=== PATIENT | male | born 1975 | race Two or more races ===

== ENCOUNTER 2020-11-13 00:31 | Inpatient (IN) | payer MEDICAID ==
[~2020-11-13] VITALS: Ht 175.3 cm; Wt 84.0 kg
[2020-11-13] MEDS ORDERED: cloNIDine HCL 0.1 MG TAB PO ONE ×2 (01:30→03:45)
[2020-11-13] MEDS ORDERED: KETOROLAC TROMETH 60MG/2ML VIAL IM ONE (03:45)
[2020-11-13] MEDS ORDERED: cefTRIAXone SOD 1,000 MG VL IM ONE (06:30)
[2020-11-13 07:45] LABS: Basophils # (auto) 0.1 10 ^3/uL (0-0.2); Basophils % (auto) 0.5 % (0.0-2.0); Eosinophils # (auto) 0.2 10 ^3/uL (0-0.8); Eosinophils % (auto) 1.6 % (0.0-7.0); Hematocrit 43.6 % (41.0-53.0); Hemoglobin 14.9 g/dL (13.5-17.5); Lymphocytes # (auto) 2.3 10 ^3/uL (0.4-5.4); Lymphocytes % (auto) 16.9 % (10.0-50.0); Mean Corpuscular Hemoglobin 30.6 pg (28.0-32.0); Mean Corpuscular Hgb Conc. 34.2 g/dL (32.0-36.0); Mean Corpuscular Volume 89.6 fL (80.0-100.0); Monocytes % (auto) 7.6 % (0.0-12.0); Neutrophils # (auto) 9.9 10 ^3/uL (1.6-8.6); Neutrophils % (auto) 73.4 % (37.0-80.0); Red Blood Cells 4.86 10^6/uL (4.5-5.90); Red Cell Distribution Width 13.4 % (11.8-14.3); White Blood Cell 13.5 10^3/uL (4.4-10.8)
[2020-11-13 08:09] LABS: Calcium 8.5 mg/dL (8.5-10.1); Potassium 3.3 mmol/L (3.5-5.1)
[2020-11-13 08:11] LABS: BUN/Creatinine Ratio 25.4; Bilirubin, Total 0.4 mg/dL (0.2-1.0); Total Protein 7.1 g/dL (6.4-8.2)
[2020-11-13] MEDS ORDERED: VANCOMYCIN 1GM/250ML 250 ML IV ONE (08:45)
[2020-11-13] MEDS ORDERED: SOD CHL 0.9%/ KCL 40MEQ 1,000 ML IV ONE (09:00)
[2020-11-13] MEDS ORDERED: MORPHINE SULFATE INJECTION 2 MG/ML SYRG IV PRN (09:00)
[2020-11-13] MEDS ORDERED: ONDANSETRON HCL 4 MG/2 ML VIAL IV PRN (09:00)
[2020-11-13] MEDS ORDERED: NITROGLYCERIN 0.4 MG SL TAB SL PRN (09:00)
[2020-11-13] MEDS ORDERED: ACETAMINOPHEN 500 MG TAB PO PRN (09:00)
[2020-11-13] MEDS ORDERED: hydrALAZINE HCL 20 MG/ML VL IV PRN (09:00)
[2020-11-13] MEDS ORDERED: LORazepam 0.5 MG TAB PO PRN (09:00)
[2020-11-13] MEDS: PANTOPRAZOLE 40 MG TAB PO SCH (10:22)
[2020-11-13] MEDS: amLODIPine BESYLATE 5 MG TAB PO SCH (10:22)
[2020-11-13] MEDS: MORPHINE SULFATE INJECTION 2 MG/ML SYRG IV PRN ×3 (12:51→21:28)
[2020-11-13 13:00] VITALS: BP_SYST 148; BP_SYST 185; BP_DIAS 113; BP_DIAS 87
[2020-11-13] MEDS: CLINDAMYCIN 300MG IV 50 ML IV SCH ×2 (14:34→21:24)
[2020-11-13] MEDS: HYDROcodone-ACET 5/325MG TAB PO PRN ×2 (15:02→23:19)
[2020-11-13] MEDS: NICOTINE 21MG/24 HR TOPICAL PATCH TD SCH (18:19)
[2020-11-13 20:00] VITALS: BP 156/96
[2020-11-13 22:00] VITALS: BP 156/96
[2020-11-14 05:00] VITALS: BP 149/97
[2020-11-14] MEDS: CLINDAMYCIN 300MG IV 50 ML IV SCH ×3 (05:22→22:05)
[2020-11-14] MEDS: MORPHINE SULFATE INJECTION 2 MG/ML SYRG IV PRN ×3 (05:23→18:53)
[2020-11-14] MEDS: HYDROcodone-ACET 5/325MG TAB PO PRN ×3 (08:06→22:06)
[2020-11-14 08:30] VITALS: BP 184/114
[2020-11-14] MEDS: NICOTINE 21MG/24 HR TOPICAL PATCH TD SCH (09:17)
[2020-11-14] MEDS: cefTRIAXone 1GM/50ML D5W 50 ML IV SCH (09:17)
[2020-11-14] MEDS: PANTOPRAZOLE 40 MG TAB PO SCH (09:18)
[2020-11-14 09:22] VITALS: BP 157/102
[2020-11-14] MEDS: amLODIPine BESYLATE 5 MG TAB PO SCH (09:24)
[2020-11-14 12:30] VITALS: BP 159/105
[2020-11-14] MEDS: LABETALOL HCL 200 MG TAB PO SCH ×2 (14:15→22:06)
[2020-11-14 17:00] VITALS: BP_SYST 153; BP_SYST 170; BP_DIAS 109; BP_DIAS 97
[2020-11-14] MEDS: DOCUSATE SOD 100 MG CAP PO PRN (22:06)
[2020-11-15] MEDS: MORPHINE SULFATE INJECTION 2 MG/ML SYRG IV PRN ×4 (03:26→20:31)
[2020-11-15] MEDS: HYDROcodone-ACET 5/325MG TAB PO PRN ×3 (04:50→17:36)
[2020-11-15 05:00] VITALS: BP 132/87
[2020-11-15] MEDS: CLINDAMYCIN 300MG IV 50 ML IV SCH ×3 (06:10→21:30)
[2020-11-15 06:13] LABS: Cholesterol 189 mg/dL (< 200); HDL Cholesterol 28 mg/dL (40-59); LDL Cholesterol 132 mg/dL (< 100); Triglycerides 161 mg/dL (< 150)
[2020-11-15 08:52] VITALS: BP 127/81
[2020-11-15] MEDS: cefTRIAXone 1GM/50ML D5W 50 ML IV SCH (09:23)
[2020-11-15] MEDS: amLODIPine BESYLATE 5 MG TAB PO SCH (09:24)
[2020-11-15] MEDS: PANTOPRAZOLE 40 MG TAB PO SCH (09:24)
[2020-11-15] MEDS: LABETALOL HCL 200 MG TAB PO SCH ×2 (09:25→21:30)
[2020-11-15] MEDS: NICOTINE 21MG/24 HR TOPICAL PATCH TD SCH (09:26)
[2020-11-15 13:00] VITALS: BP 144/98
[2020-11-15 16:46] VITALS: BP 156/95
[2020-11-15 22:00] VITALS: BP 154/109
[2020-11-16] MEDS: HYDROcodone-ACET 5/325MG TAB PO PRN ×4 (00:50→21:11)
[2020-11-16] MEDS: MORPHINE SULFATE INJECTION 2 MG/ML SYRG IV PRN ×4 (03:18→23:31)
[2020-11-16 05:00] VITALS: BP 142/93
[2020-11-16] MEDS: CLINDAMYCIN 300MG IV 50 ML IV SCH ×3 (05:18→21:11)
[2020-11-16 09:00] VITALS: BP 142/97
[2020-11-16] MEDS: cefTRIAXone 1GM/50ML D5W 50 ML IV SCH (09:40)
[2020-11-16] MEDS: NICOTINE 21MG/24 HR TOPICAL PATCH TD SCH (09:41)
[2020-11-16] MEDS: LABETALOL HCL 200 MG TAB PO SCH ×2 (09:43→22:00)
[2020-11-16] MEDS: PANTOPRAZOLE 40 MG TAB PO SCH (09:43)
[2020-11-16] MEDS: amLODIPine BESYLATE 5 MG TAB PO SCH (09:43)
[2020-11-16 13:00] VITALS: BP 145/99
[2020-11-16] MEDS: POVIDONE IODINE 10 % TOPICAL OINT 30GM TOP SCH (15:00)
[2020-11-16 17:00] VITALS: BP 135/89
[2020-11-16] MEDS: ATORVASTATIN 20 MG TAB PO SCH (21:11)
[2020-11-16 22:00] VITALS: BP 154/94
[2020-11-17] MEDS: HYDROcodone-ACET 5/325MG TAB PO PRN ×2 (03:08→13:02)
[2020-11-17 05:00] VITALS: BP 132/84
[2020-11-17] MEDS: CLINDAMYCIN 300MG IV 50 ML IV SCH ×3 (05:04→21:56)
[2020-11-17] MEDS: MORPHINE SULFATE INJECTION 2 MG/ML SYRG IV PRN ×3 (05:04→19:47)
[2020-11-17 05:50] LABS: INR 1.17 (0.9-1.15); Partial Thromboplastin Time 31.9 sec (23.6-33.0)
[2020-11-17 06:41] LABS: Urine Bacteria FEW /hpf (None Seen); Urine Blood 2+ /uL (Negative); Urine Mucus FEW (None Seen); Urine Specific Gravity 1.029 (1.001-1.035); Urine Sperm PRESENT /hpf (None Seen); Urine WBC 4 /hpf (0 - 3)
[2020-11-17] MEDS ORDERED: BUPIVACAINE 0.25% INJ 50ML VIAL ONE (07:23)
[2020-11-17] MEDS ORDERED: LIDOCAINE 1% HCL (LOCAL ANESTH.) INJ 20ML MDV ONE (07:23)
[2020-11-17] MEDS ORDERED: MIDAZOLAM HCL 2MG/2ML 2ml VIAL (1mg/ml) ONE (07:32)
[2020-11-17] MEDS ORDERED: fentaNYL CITRATE 100 MCG/2 ML VL ONE ×2 (07:32→07:51)
[2020-11-17] MEDS ORDERED: ONDANSETRON HCL 4 MG/2 ML VIAL ONE (07:52)
[2020-11-17] MEDS ORDERED: LIDOCAINE 2% (LOCAL ANESTH.) PF 5ml SDV ONE (07:52)
[2020-11-17] MEDS ORDERED: PROPOFOL 10 MG/ML 20 ML IV ONE (07:53)
[2020-11-17] MEDS ORDERED: HYDROmorphone HCL 2 MG/ML VL ONE (08:12)
[2020-11-17] MEDS: HYDROmorphone HCL 2 MG/ML VL IV PRN ×4 (08:13→08:43)
[2020-11-17] MEDS ORDERED: ONDANSETRON HCL 4 MG/2 ML VIAL IV PRN (08:15)
[2020-11-17] MEDS ORDERED: HYDROmorphone HCL 2 MG/ML VL IV PRN (08:15)
[2020-11-17] MEDS: POVIDONE IODINE 10 % TOPICAL OINT 30GM TOP SCH (09:09)
[2020-11-17] MEDS: cefTRIAXone 1GM/50ML D5W 50 ML IV SCH (10:12)
[2020-11-17] MEDS: PANTOPRAZOLE 40 MG TAB PO SCH (10:14)
[2020-11-17] MEDS: LABETALOL HCL 200 MG TAB PO SCH ×2 (10:14→22:17)
[2020-11-17] MEDS: amLODIPine BESYLATE 5 MG TAB PO SCH (10:14)
[2020-11-17] MEDS: NICOTINE 21MG/24 HR TOPICAL PATCH TD SCH (10:15)
[2020-11-17] MEDS: ATORVASTATIN 20 MG TAB PO SCH (21:56)
[2020-11-17 22:00] VITALS: BP 143/86
[2020-11-18 05:00] VITALS: BP 129/80
[2020-11-18] MEDS: CLINDAMYCIN 300MG IV 50 ML IV SCH ×2 (06:45→14:22)
[2020-11-18] MEDS: MORPHINE SULFATE INJECTION 2 MG/ML SYRG IV PRN ×3 (06:46→15:10)
[2020-11-18] MEDS: cefTRIAXone 1GM/50ML D5W 50 ML IV SCH (08:41)
[2020-11-18 09:00] VITALS: BP 130/82
[2020-11-18] MEDS: POVIDONE IODINE 10 % TOPICAL OINT 30GM TOP SCH (10:00)
[2020-11-18 10:32] LABS: Basophils # (auto) 0.1 10 ^3/uL (0-0.2); Basophils % (auto) 0.7 % (0.0-2.0); Eosinophils # (auto) 0.1 10 ^3/uL (0-0.8); Eosinophils % (auto) 1.4 % (0.0-7.0); Hematocrit 44.1 % (41.0-53.0); Hemoglobin 15.3 g/dL (13.5-17.5); Lymphocytes # (auto) 1.5 10 ^3/uL (0.4-5.4); Lymphocytes % (auto) 15.7 % (10.0-50.0); Mean Corpuscular Hgb Conc. 34.6 g/dL (32.0-36.0); Mean Corpuscular Volume 89.6 fL (80.0-100.0); Monocytes % (auto) 10.2 % (0.0-12.0); Neutrophils # (auto) 6.8 10 ^3/uL (1.6-8.6); Red Blood Cells 4.92 10^6/uL (4.5-5.90); Red Cell Distribution Width 13.3 % (11.8-14.3); White Blood Cell 9.4 10^3/uL (4.4-10.8)
[2020-11-18 10:50] LABS: Albumin 2.9 g/dL (3.4-5.0); BUN/Creatinine Ratio 21.8; Calcium 8.4 mg/dL (8.5-10.1); Potassium 3.8 mmol/L (3.5-5.1)
[2020-11-18 10:53] LABS: Bilirubin, Total 0.3 mg/dL (0.2-1.0); Total Protein 7.5 g/dL (6.4-8.2)
[2020-11-18] MEDS: LABETALOL HCL 200 MG TAB PO SCH ×2 (10:55→23:08)
[2020-11-18] MEDS: amLODIPine BESYLATE 5 MG TAB PO SCH (10:55)
[2020-11-18] MEDS: PANTOPRAZOLE 40 MG TAB PO SCH (10:55)
[2020-11-18] MEDS: NICOTINE 21MG/24 HR TOPICAL PATCH TD SCH (10:56)
[2020-11-18 13:00] VITALS: BP 121/73
[2020-11-18 16:45] VITALS: BP 129/88
[2020-11-18] MEDS: DOCUSATE SOD 100 MG CAP PO PRN ×2 (19:03→19:25)
[2020-11-18] MEDS: HYDROcodone-ACET 5/325MG TAB PO PRN (19:25)
[2020-11-18 22:00] VITALS: BP 133/83
[2020-11-18] MEDS: ATORVASTATIN 20 MG TAB PO SCH (22:43)
[2020-11-19] MEDS: CLINDAMYCIN 300MG IV 50 ML IV SCH ×4 (01:05→22:24)
[2020-11-19] MEDS: HYDROcodone-ACET 5/325MG TAB PO PRN ×3 (02:14→22:33)
[2020-11-19 05:00] VITALS: BP 114/81
[2020-11-19 08:26] VITALS: BP 108/69
[2020-11-19] MEDS: cefTRIAXone 1GM/50ML D5W 50 ML IV SCH (09:32)
[2020-11-19] MEDS: NICOTINE 21MG/24 HR TOPICAL PATCH TD SCH (09:32)
[2020-11-19] MEDS: LABETALOL HCL 200 MG TAB PO SCH ×2 (09:33→22:24)
[2020-11-19] MEDS: amLODIPine BESYLATE 5 MG TAB PO SCH (09:33)
[2020-11-19] MEDS: POVIDONE IODINE 10 % TOPICAL OINT 30GM TOP SCH (09:34)
[2020-11-19] MEDS: PANTOPRAZOLE 40 MG TAB PO SCH (09:34)
[2020-11-19 13:00] VITALS: BP 109/72
[2020-11-19] MEDS: MORPHINE SULFATE INJECTION 2 MG/ML SYRG IV PRN ×4 (14:25→20:28)
[2020-11-19 16:48] VITALS: BP 145/85
[2020-11-19 22:00] VITALS: BP 133/85
[2020-11-19] MEDS: ATORVASTATIN 20 MG TAB PO SCH (22:24)
[2020-11-20 05:00] VITALS: BP 116/76
[2020-11-20] MEDS: CLINDAMYCIN 300MG IV 50 ML IV SCH ×3 (05:47→22:40)
[2020-11-20] MEDS: cefTRIAXone 1GM/50ML D5W 50 ML IV SCH (08:54)
[2020-11-20 09:00] VITALS: BP 123/74
[2020-11-20] MEDS: PANTOPRAZOLE 40 MG TAB PO SCH (10:07)
[2020-11-20] MEDS: LABETALOL HCL 200 MG TAB PO SCH ×2 (10:07→22:40)
[2020-11-20] MEDS: amLODIPine BESYLATE 5 MG TAB PO SCH (10:08)
[2020-11-20] MEDS: NICOTINE 21MG/24 HR TOPICAL PATCH TD SCH (10:09)
[2020-11-20 13:00] VITALS: BP 110/75
[2020-11-20 17:00] VITALS: BP 129/76
[2020-11-20] MEDS: POVIDONE IODINE 10 % TOPICAL OINT 30GM TOP SCH (19:24)
[2020-11-20 22:00] VITALS: BP 142/75
[2020-11-20] MEDS: ATORVASTATIN 20 MG TAB PO SCH (22:40)
[2020-11-20] MEDS: MORPHINE SULFATE INJECTION 2 MG/ML SYRG IV PRN (22:41)
[2020-11-21 05:00] VITALS: BP 122/70
[2020-11-21] MEDS: MORPHINE SULFATE INJECTION 2 MG/ML SYRG IV PRN (05:09)
[2020-11-21] MEDS: CLINDAMYCIN 300MG IV 50 ML IV SCH ×3 (05:28→21:33)
[2020-11-21 08:25] VITALS: BP 125/76
[2020-11-21] MEDS: cefTRIAXone 1GM/50ML D5W 50 ML IV SCH (09:38)
[2020-11-21] MEDS: LABETALOL HCL 200 MG TAB PO SCH ×2 (09:40→21:33)
[2020-11-21] MEDS: amLODIPine BESYLATE 5 MG TAB PO SCH (09:40)
[2020-11-21] MEDS: NICOTINE 21MG/24 HR TOPICAL PATCH TD SCH (09:41)
[2020-11-21] MEDS: PANTOPRAZOLE 40 MG TAB PO SCH (09:41)
[2020-11-21 12:46] VITALS: BP 117/77
[2020-11-21 16:41] VITALS: BP 120/75
[2020-11-21] MEDS: ATORVASTATIN 20 MG TAB PO SCH (21:33)
[2020-11-21] MEDS: HYDROcodone-ACET 5/325MG TAB PO PRN (21:34)
[2020-11-21 22:00] VITALS: BP 132/83
[2020-11-22 04:53] VITALS: BP 130/81
[2020-11-22] MEDS: CLINDAMYCIN 300MG IV 50 ML IV SCH ×2 (05:39→17:14)
[2020-11-22] MEDS ORDERED: ceFAZolin 1GM/50ML 50 ML IV ONE (07:37)
[2020-11-22 09:00] VITALS: BP 124/80
[2020-11-22] MEDS: cefTRIAXone 1GM/50ML D5W 50 ML IV SCH (09:07)
[2020-11-22] MEDS: POVIDONE IODINE 10 % TOPICAL OINT 30GM TOP SCH (10:00)
[2020-11-22] MEDS: LABETALOL HCL 200 MG TAB PO SCH (10:53)
[2020-11-22] MEDS: amLODIPine BESYLATE 5 MG TAB PO SCH (10:53)
[2020-11-22] MEDS: PANTOPRAZOLE 40 MG TAB PO SCH (10:54)
[2020-11-22] MEDS: NICOTINE 21MG/24 HR TOPICAL PATCH TD SCH (10:58)
[2020-11-22 13:00] VITALS: BP 124/78
[2020-11-22 16:11] VITALS: BP 124/78
[2020-11-22 17:00] VITALS: BP 123/76
[2020-11-22] MEDS: MORPHINE SULFATE INJECTION 2 MG/ML SYRG IV PRN (17:13)
[2020-11-22 18:23] VITALS: BP 123/76
== END 2020-11-22 19:05 | disposition home health service (06) | DRG 383 ==
LOC: ER 00:33 → OVERFLOW 08:55 → WEST WING 12:20
PROVIDERS: ADMIT Nurse Practitioner Acute Care; ATTEND Internal Medicine
PROC: 0H9NXZZ Drainage of Left Foot Skin, External Approach (ICD-10-PCS; principal; 2020-11-17 07:31)
DX: L03.116 Cellulitis of left lower limb (principal); E87.6 Hypokalemia; L02.612 Cutaneous abscess of left foot; I10 Essential (primary) hypertension; F17.210 Nicotine dependence, cigarettes, uncomplicated; Z20.822 Contact with and (suspected) exposure to COVID-19; Z71.6 Tobacco abuse counseling
CPT/HCPCS: 36415; 71045; 73630; 73700; 80053; 80061; 81001; 83036; 83605; 84443; 85025; 85610; 85652; 85730; 86850; 86900; 86901; 87040; 87070; 87075; 87077; 87186; 87205; 87426; 93306; 96365; 96372; G0378; J0690; J0696; J1885; J2001; J2250; J2405; J2704; J3490